=== PATIENT | male | born 1945 | race Caucasian/White ===

== ENCOUNTER 2022-02-26 14:37 | Emergency (ER) | payer OTHER ==
[~2022-02-26] VITALS: Ht 162.6 cm; Wt 72.6 kg
--- NOTE | 2022-02-26 15:55 | NUR ---
PT IS IN ROOM #2B. DR ROQUE EVALUATED THE PT.
[2022-02-26] MEDS ORDERED: LIDOCAINE HCL 1% 20 ML VIAL IJ ONE (16:15)
[2022-02-26] MEDS ORDERED: IBUPROFEN 200 MG TABLET PO ONE (16:15)
[2022-02-26] MEDS ORDERED: methylPREDNISolone SOD SUCC 40 MG/ML VIAL IM ONE (16:15)
[2022-02-26] MEDS ORDERED: LIDOCAINE HCL 1% 20 ML VIAL ONE (16:21)
[2022-02-26] MEDS ORDERED: methylPREDNISolone SOD SUCC 40 MG/ML VIAL ONE (16:22)
[2022-02-26] MEDS ORDERED: IBUPROFEN 800 MG TABLET ONE (16:24)
--- NOTE | 2022-02-26 17:06 | NUR ---
PT WAS D/C'd TO HOME. D/C INSTRUCTIONS GIVEN TO THE PT AND TO HIS DOUGHTER BY DR ROQUE.
[2022-02-26 17:08] VITALS: BP 146/88
== END 2022-02-26 17:20 | disposition home or self-care (01) ==
LOC: ER 14:37
DX: M19.041 Primary osteoarthritis, right hand (principal); M79.644 Pain in right finger(s); E11.9 Type 2 diabetes mellitus without complications
CPT/HCPCS: 20600; 99283; 73130; J3490; J2920; A4663